=== PATIENT | female | born 1940 | race Caucasian/White ===

== ENCOUNTER 2020-02-16 12:05 | Emergency (ER) | payer MEDICARE, BC ==
[~2020-02-16] VITALS: Ht 162.6 cm; Wt 56.0 kg
[2020-02-16 12:09] VITALS: BP 160/70
[2020-02-16] MEDS ORDERED: ACETAMINOPHEN 500MG TABLET PO ONE (12:30)
[2020-02-16] MEDS ORDERED: TETANUS, DIPHTHERIA, PERTUSSIS VAC/PF 0.5ML (>7YR OLD) IM ONE (13:45)
== END 2020-02-16 14:15 | disposition home or self-care (01) ==
LOC: ER 12:32
DX: S09.8XXA Other specified injuries of head, initial encounter (principal); W18.39XA Other fall on same level, initial encounter; Y93.89 Activity, other specified; Y92.89 Other specified places as the place of occurrence of the external cause; Y99.8 Other external cause status
CPT/HCPCS: 73502; 90471; 90715; 99284